=== PATIENT | male | born 1955 | race Caucasian/White ===

== ENCOUNTER 2019-04-09 06:50 | Day surgery (SDC) | payer OTHER ==
[~2019-04-09] VITALS: Ht 180.3 cm; Wt 105.9 kg
[~2019-04-09 06:50] MED LIST: SODIUM CHLORIDE 0.9% 1,000 ML IV ONE; SODIUM CHLORIDE 0.9% 1,000 ML ONE
[2019-04-09] MEDS ORDERED: ALBUTEROL SULFATE 2.5 MG/0.5 ML NEB SOLUTION NEB ONE (06:51)
[2019-04-09] MEDS ORDERED: BENZOCAINE 20% 50 MCG/SPRAY 57 GM TP ONE (06:51)
[2019-04-09] MEDS ORDERED: LIDOCAINE 2% 30 ML JELLY TP ONE (06:51)
[2019-04-09] MEDS ORDERED: MIDAZOLAM HCL 2 MG/2 ML VIAL ONE (07:50)
[2019-04-09] MEDS ORDERED: FentaNYL CITRATE-PF 100 MCG/2 ML VIAL ONE (07:50)
[2019-04-09] MEDS ORDERED: LISI-662 PO (08:02)
[2019-04-09] MEDS ORDERED: SITA100 PO (08:02)
[2019-04-09] MEDS ORDERED: PIOG30TA10 PO (08:02)
[2019-04-09] MEDS ORDERED: FLUT16H NASAL (08:02)
[2019-04-09] MEDS ORDERED: METF-960 PO (08:02)
[2019-04-09] MEDS ORDERED: TIOT4MIS2 IH (08:02)
[2019-04-09 08:15] LABS: GLUCOMETER DEV NAME(LOC) SDS.; GLUCOSE,POINT OF CARE 140 MG/DL (70-110)
[2019-04-09] MEDS ORDERED: MethylPREDNISolone SOD SUCC 125 MG/2 ML VIAL IVP ONE (08:45)
[2019-04-09] MEDS ORDERED: MethylPREDNISolone SOD SUCC 125 MG/2 ML VIAL ONE (09:18)
[2019-04-09] MEDS ORDERED: OXYGEN THERAPY IH SCH (20:00)
== END 2019-04-09 10:30 | disposition home or self-care (01) ==
LOC: SURGERY 06:50
PROVIDERS: ATTEND Internal Medicine Critical Care Medicine
DX: R05 Cough (principal); J34.89 Other specified disorders of nose and nasal sinuses; J98.8 Other specified respiratory disorders; J38.4 Edema of larynx; B37.0 Candidal stomatitis; J44.9 Chronic obstructive pulmonary disease, unspecified; E11.9 Type 2 diabetes mellitus without complications; R19.09 Other intra-abdominal and pelvic swelling, mass and lump
CPT/HCPCS: 31623; 31624; 71045; 82962; 87015; 87070; 87101; 87205; 87206; 87220; 88108; 88184; 88185; 88312; J2250; J2930; J3010; J7030